=== PATIENT | male | born 1975 | race Caucasian/White ===

== ENCOUNTER 2021-10-11 07:10 | Day surgery (SDC) | payer OTHER ==
[~2021-10-11] VITALS: Ht 175.3 cm; Wt 83.1 kg
[~2021-10-11 07:10] MED LIST: ADALAT CC30 MG PO; MULTI VITAMINS1 TAB PO; OSTEO-BI-FLEX 21 TAB PO; PRILOSEC 20MG20 MG PO; TENORMIN 2525 MG/TAB PO; prevagen PO
[2021-10-11] MEDS ORDERED: PROTONIX 40MG T40 MG PO (07:27)
[2021-10-11] MEDS ORDERED: PERCOCET 325 MG1 TA2 PO (07:28)
[2021-10-11] MEDS ORDERED: LIPITOR20 MG PO (07:28)
[2021-10-11] MEDS ORDERED: FLEXERIL 1010 MG/TAB PO (07:28)
[2021-10-11] MEDS ORDERED: NEURONTIN300 MG/CAP PO (07:29)
[2021-10-11 07:44] VITALS: BP 128/83; PULSE 91; TEMP 97.4
[2021-10-11 09:05] VITALS: BP 112/87; PULSE 88; TEMP 97
[2021-10-11 09:15] VITALS: BP 73/63; PULSE 79
[2021-10-11 09:45] VITALS: BP 120/85; PULSE 74
--- NOTE | 2021-10-11 09:55 | NUR ---
0905 Pt returns from endo procedure via cart and RN assist to [facility]. Pt ambulates from cart to recliner with RN assist. Monitors on and alarms set. Call light within reach. Report received from TSERING Fleming. Pt alert and oriented. Pt requests Sprite and muffin. Pt denies any pain or nausea. Pt's present in room. 0920 Pt taking food and drink well. No complications noted. 0950 Discharge instructions given to pt and pt's . All questions answered to their satisfaction. Handed to pt are a thank you card and discharge information. 0955 Pt transferred out of the hospital via wheelchair and Forrest assist, to private vehicle driven by pt's .
== END 2021-10-11 09:55 | disposition home or self-care (01) ==
LOC: SDCO 07:10
DX: Z12.11 Encounter for screening for malignant neoplasm of colon (principal); K63.5 Polyp of colon; K62.1 Rectal polyp; K21.9 Gastro-esophageal reflux disease without esophagitis; G89.29 Other chronic pain; K57.30 Diverticulosis of large intestine without perforation or abscess without bleeding; K64.0 First degree hemorrhoids; E78.5 Hyperlipidemia, unspecified; F17.210 Nicotine dependence, cigarettes, uncomplicated; Z79.899 Other long term (current) drug therapy; Z85.828 Personal history of other malignant neoplasm of skin; Z80.0 Family history of malignant neoplasm of digestive organs
CPT/HCPCS: J2704; J7120